=== PATIENT | female | born 1990 | race Caucasian/White ===

== ENCOUNTER → 2016-05-04 | Outpatient (CLI) | payer BC ==
[2016-05-04 12:17] LABS: ALT 30 U/L (9-52); AST 24 U/L (14-36); Alkaline Phosphatase 50 U/L (38-126); Anion Gap 10 mmol/L; Blood Urea Nitrogen 14 mg/dL (7-17); Calcium 9.1 mg/dL (8.4-10.2); Carbon Dioxide 23 mmol/L (22-30); Chloride 110 mmol/L (98-107); Glucose 77 mg/dL (74-99); Non-African American GFR(MDRD) >60 (>60 ml/min/1.73 sqM); Potassium 3.8 mmol/L (3.5-5.1); Sodium 143 mmol/L (137-145); Total Bilirubin 0.9 mg/dL (0.2-1.3); Total Protein 6.5 g/dL (6.3-8.2)
[2016-05-04 12:57] LABS: Aty Lym Flag Slight; CH 31.9; CHCM 32.3; HCT 43.5 % (34.0-46.0); HDW 2.23; Immature Gran Flag Moderate; MCH 31.8 pg (25.0-35.0); MCHC 32.1 g/dL (31.0-37.0); Mean Platelet Volume 7.9; RDW 12.4 % (11.5-15.5); WBC (Perox) 6.02
[2016-05-04 13:05] LABS: Vitamin B12 358 pg/mL (239-931)
[2016-05-04 14:02] LABS: Hemoglobin A1C 5.4 % (4.2-6.1)
[2016-05-04 14:27] LABS: Add Differential Manual Differential
[2016-05-04 14:34] LABS: Nucleated Red Blood Cells 0 /100 WBC (0-0); Total Cells Counted 100
[2016-05-04 14:37] LABS: Manual Review Performed
== END | disposition home or self-care (01) ==
LOC: LABWHC1 11:23
PROVIDERS: ATTEND Nurse Practitioner Family
DX: R63.1 Polydipsia (principal); R53.83 Other fatigue; Z13.228 Encounter for screening for other metabolic disorders
CPT/HCPCS: 36415; 80053; 82306; 82607; 83036; 84439; 84443; 85025

== ENCOUNTER → 2016-05-10 | Outpatient (CLI) | payer BC ==
--- NOTE | 2016-05-10 07:49 | CT ---
EXAMINATION TYPE: CT brain wo con DATE OF EXAM: 05/10/2016 7:44 AM COMPARISON: NONE HISTORY: Headache and vision changes CT DLP: 945.5 mGycm Automated exposure control for dose reduction was used. FINDINGS: Central structures are midline. There is no evidence of hydrocephalus. No acute focal lesion, mass ef fect or midline shift is seen. I do not see evidence of intracranial blood. Visualized portions of the paranasal sinuses and mastoids are clear. No depressed skull fracture is s een. IMPRESSION: NORMAL CT SCAN OF THE BRAIN.
== END | disposition home or self-care (01) ==
LOC: RADCTMAIN 07:21
PROVIDERS: ATTEND Family Medicine
DX: R51 Headache (principal)
CPT/HCPCS: 70450

== ENCOUNTER 2017-12-15 15:16 | Emergency (ER) | payer BC ==
[2017-12-15 15:29] VITALS: BP 138/81; PULSE 83; RESP 18; TEMP 98.4
[2017-12-15] MEDS ORDERED: SODIUM CHLORIDE 0.9% 500 ML IV ONE (15:33)
--- NOTE | 2017-12-15 15:49 | ED ---
General Adult HPI - General Chief complaint: Vaginal Bleeding Stated complaint: newly pg with bleeding Source: patient Mode of arrival: ambulatory Limitations: no limitations - History of Present Illness Initial comments: Dictation was produced using [employer] dictation software. please excuse any grammatical, word or spelling errors. Chief Complaint: 27-year-old female no significant past medical history presents with pelvic cramping and bleeding and . History of Present Illness: Patient is a 27-year-old presents with pelvic cramping and bleeding today. Patient was told that she is between 3 and 6 weeks based on last menstrual period. Patient experienced some pelvic pain and bleeding upon wiping after urination today. Patient has no medical problems. Patient states the pain is to the suprapubic area. The ROS documented in this emergency department record has been reviewed and confirmed by me. Those systems with pertinent positive or negative responses have been documented in the HPI. All other systems are other negative and/or noncontributory. - Related Data Allergies Allergy/AdvReac Type Severity Reaction Status Date / Time ibuprofen [From Advil] Allergy Rash/Hives Verified 12/15/17 15:29 Review of Systems ROS Statement: Those systems with pertinent positive or pertinent negative responses have been documented in the HPI. ROS Other: All systems not noted in ROS Statement are negative. Past Medical History Past Medical History: No Reported History History of Any Multi-Drug Resistant Organisms: None Reported Past Surgical History: Adenoidectomy, Tonsillectomy Past Psychological History: No Psychological Hx Reported Smoking Status: Never smoker Past Alcohol Use History: Occasional Past Drug Use History: None Reported General Exam - General Exam Comments Initial Comments: PHYSICAL EXAM: General Impression: Alert and oriented x3, not in acute distress HEENT: Normocephalic atraumatic, extra-ocular movements intact, pupils equal and reactive to light bilaterally, mucous membranes moist. Cardiovascular: Heart regular rate and rhythm, S1&S2 audible, no murmurs, rubs or gallops Chest: Lungs clear to auscultation bilaterally, no rhonchi, no wheeze, no rales Abdomen: Mild tenderness to the suprapubic area with palpation Musculoskeletal: Pulses present and equal in all extremities, no peripheral edema Motor: Power 5/5 bilaterally, no focal deficits noted Neurological: CN II-XII grossly intact, no focal motor or sensory deficits noted Skin: Intact with no visualized rashes Psych: Normal affect and mood Limitations: no limitations Course Vital Signs 12/15/17 15:27 Temperature 98.4 F Pulse Rate 83 Respiratory 18 Rate Blood Pressure 138/81 O2 Sat by Pulse 100 Oximetry Medical Decision Making - Medical Decision Making ED course: 27-year-old female with no significant past medical history presents with pelvic cramping and vaginal bleeding during . Patient states she believes she is between 3 and 6 weeks based on last menstrual period . Patient is on vitamins she is on multivitamins. No significant comorbidities. Vital signs upon arrival are within acceptable limits.Laboratory evaluation obtained. CBC is unremarkable. Beta Quant is 10, 818. Urinalysis is negative. OB ultrasound was obtained showing a single intrauterine . Findings are too small to determine date. It appears to be too early to see cardiac activity at this time. Blood type is O+. No indication for program administration at this time. Pelvic exam showed mild bleeding collected in the vaginal vault. Cervical os is closed without any active leading. Bimanual exam is negative. Patient told that her may be too early and at this point there appears to be single live intrauterine . Patient's pain is controlled. No clinical suspicion of ectopic . Patient at discharge. She'll follow-up with her [employer] sometime early next week. - Lab Data Result diagrams: 12/15/17 15:41 Lab Results 12/15/17 12/15/17 12/15/17 Range/Units 15:41 15:41 15:41 WBC 4.5 (3.8-10.6) k/uL RBC 4.59 (3.80-5.40) m/uL Hgb 14.4 (11.4-16.0) gm/dL Hct 46.2 H (34.0-46.0) % MCV 100.5 H (80.0-100.0) fL MCH 31.4 (25.0-35.0) pg MCHC 31.2 (31.0-37.0) g/dL RDW 12.5 (11.5-15.5) % Plt Count 187 (150-450) k/uL Neutrophils % 50 % Lymphocytes % 36 % Monocytes % 8 % Eosinophils % 1 % Basophils % 1 % Neutrophils # 2.2 (1.3-7.7) k/uL Lymphocytes # 1.6 (1.0-4.8) k/uL Monocytes # 0.4 (0-1.0) k/uL Eosinophils # 0.0 (0-0.7) k/uL Basophils # 0.0 (0-0.2) k/uL HCG, Quant 31381.6 mIU/mL Urine Color Urine Appearance (Clear) Urine pH (5.0-8.0) Ur Specific [place] (1.001-1.035) Urine Protein (Negative) Urine Glucose (UA) (Negative) Urine Ketones (Negative) Urine Blood (Negative) Urine Nitrite (Negative) Urine Bilirubin (Negative) Urine Urobilinogen (<2.0) mg/dL Ur Leukocyte Esterase (Negative) Urine HCG, Qual (Not Detectd) Blood Type O Positive Blood Type Recheck [facility] ONLY 12/15/17 12/15/17 Range/Units 15:41 15:41 WBC (3.8-10.6) k/uL RBC (3.80-5.40) m/uL Hgb (11.4-16.0) gm/dL Hct (34.0-46.0) % MCV (80.0-100.0) fL MCH (25.0-35.0) pg MCHC (31.0-37.0) g/dL RDW (11.5-15.5) % Plt Count (150-450) k/uL Neutrophils % % Lymphocytes % % Monocytes % % Eosinophils % % Basophils % % Neutrophils # (1.3-7.7) k/uL Lymphocytes # (1.0-4.8) k/uL Monocytes # (0-1.0) k/uL Eosinophils # (0-0.7) k/uL Basophils # (0-0.2) k/uL HCG, Quant mIU/mL Urine Color Yellow Urine Appearance Clear (Clear) Urine pH 5.0 (5.0-8.0) Ur Specific [place] 1.013 (1.001-1.035) Urine Protein Negative (Negative) Urine Glucose (UA) Negative (Negative) Urine Ketones Negative (Negative) Urine Blood Negative (Negative) Urine Nitrite Negative (Negative) Urine Bilirubin Negative (Negative) Urine Urobilinogen <2.0 (<2.0) mg/dL Ur Leukocyte Esterase Negative (Negative) Urine HCG, Qual Detected (Not Detectd) Blood Type Blood Type Recheck Disposition Clinical Impression: Bleeding in early Disposition: HOME SELF-CARE Condition: Good Instructions: Threatened Miscarriage (ED) Is patient prescribed a controlled substance at d/c from ED?: No Referrals: Lorne Sarkar DO [Primary Care Provider] - 1-2 days Time of Disposition: 18:12
[2017-12-15 15:56] LABS: Basophils % (A) 1 %; Eosinophils % (A) 1 %; HCT 46.2 % (34.0-46.0); HGB 14.4 gm/dL (11.4-16.0); Lymphocytes # (A) 1.6 k/uL (1.0-4.8); Lymphocytes % (A) 36 %; MCH 31.4 pg (25.0-35.0); MCHC 31.2 g/dL (31.0-37.0); MCV 100.5 fL (80.0-100.0); Mean Platelet Volume 7.5; Monocytes # (A) 0.4 k/uL (0-1.0); Monocytes % (A) 8 %; Neutrophils # (A) 2.2 k/uL (1.3-7.7); Neutrophils % (A) 50 %; Platelet Count 187 k/uL (150-450); RBC 4.59 m/uL (3.80-5.40); RDW 12.5 % (11.5-15.5); WBC 4.5 k/uL (3.8-10.6)
[2017-12-15 16:00] LABS: Appearance,Urine Clear (Clear); Bilirubin,Urine Negative (Negative); Blood,Urine Negative (Negative); Color,Urine Yellow; Glucose,Urine (UA) Negative (Negative); Ketones,Urine Negative (Negative); Leukocyte Esterase,Urine Negative (Negative); Nitrite,Urine Negative (Negative); Protein,Urine Negative (Negative); Specific Gravity,Urine 1.013 (1.001-1.035); Urobilinogen,Urine <2.0 mg/dL (<2.0)
--- NOTE | 2017-12-15 17:19 | US ---
EXAMINATION TYPE: Ultrasound OB <= 14 WEEKS TRANSVAGINAL DATE OF EXAM: 12/15/2017 COMPARISON: NONE CLINICAL HISTORY: 27-year-old female with pain. Pt states cramping and light vaginal bleeding EXAM PERFORMED: Transvaginal (TV) and Transabdominal (TA) FINDINGS: EXAM MEASUREMENTS: GESTATIONAL AGE / DATING Physician Established: Not yet established Dates by LMP: (6 weeks/0 days) EDC: 08/10/2018 Dates by First Scan: No prior Dates by Current Scan for: Too early to calculate dates MATERNAL ANATOMY Uterus: 7.1 x 3.9 x 3.8 cm Right Ovary: 3.5 x 1.8 x 2.1 cm Left Ovary: 2.3 x 1.2 x 2.2 cm Post CDS / Adnexa: wnl Presence of free fluid: Small amount posterior cul-de-sac Presence of corpus luteal cyst: Right Ovary= 1.7 x 0.9 x 1.3 cm Presence of subchorionic bleed: No GESTATION / SURVEY CRL: Not yet visualized MSD: 0.9 cm Too early to calculate dates, borders somewhat irregular Yolk Sac (normal less than 6mm): 2mm Date of LMP: 11/03/2017 Beta HcG (if available): Not available at this time IMPRESSION: 1. Single intrauterine (characterized by a gestational sac and yolk sac) too small to date at this time. No pole or cardiac activity seen at this time. Correlate with beta hCG values. 2. Current differential considerations include early and failed . Ultrasound follo w-up is recommended to ensure the appearance of the pole with cardiac activity especially as th e gestational sac has a slightly irregular appearance.
== END 2017-12-15 18:20 | disposition home or self-care (01) ==
LOC: EC 15:16
DX: O20.9 Hemorrhage in early pregnancy, unspecified (principal); O99.89 Other specified diseases and conditions complicating pregnancy, childbirth and the puerperium; R10.2 Pelvic and perineal pain; Z3A.01 Less than 8 weeks gestation of pregnancy; Z88.6 Allergy status to analgesic agent
CPT/HCPCS: 36415; 76801; 76817; 81003; 81025; 84702; 85025; 86900; 86901; 96360; 99284

== ENCOUNTER → 2017-12-17 | Outpatient (CLI) | payer BC | END | disposition home or self-care (01) | LOC: LABWHC1 15:31 | PROVIDERS: ATTEND Obstetrics & Gynecology | DX: O20.0 Threatened abortion (principal); Z3A.00 Weeks of gestation of pregnancy not specified | CPT/HCPCS: 36415; 84702 ==

== ENCOUNTER → 2017-12-23 | Outpatient (CLI) | payer BC | END | disposition home or self-care (01) | LOC: LABWHC1 10:04 | PROVIDERS: ATTEND Obstetrics & Gynecology | DX: O20.0 Threatened abortion (principal); Z3A.00 Weeks of gestation of pregnancy not specified | CPT/HCPCS: 36415; 84702 ==

== ENCOUNTER → 2018-01-08 | Outpatient (CLI) | payer BC ==
[2018-01-08 09:23] LABS: HCT 40.4 % (34.0-46.0); HGB 13.3 gm/dL (11.4-16.0); MCH 31.9 pg (25.0-35.0); MCV 96.8 fL (80.0-100.0); Mean Platelet Volume 8.2; Platelet Count 201 k/uL (150-450); RBC 4.17 m/uL (3.80-5.40); RDW 11.9 % (11.5-15.5); WBC 8.4 k/uL (3.8-10.6)
[2018-01-08 09:53] LABS: T4, Free (Free Thyroxine) 1.26 ng/dL (0.78-2.19)
[2018-01-08 18:43] LABS: HIV 1 AB Non-Reactive (Non-Reactive); HIV AB P24 Non-Reactive (Non-Reactive); HIV P24 AG Non-Reactive (Non-Reactive)
== END ==
LOC: LABWHC1 08:15
PROVIDERS: ATTEND Obstetrics & Gynecology
DX: Z34.90 Encounter for supervision of normal pregnancy, unspecified, unspecified trimester (principal); Z3A.00 Weeks of gestation of pregnancy not specified
CPT/HCPCS: 36415; 84439; 84443; 85027; 86762; 86780; 86850; 86900; 86901; 87086; 87340; 87390

== ENCOUNTER → 2018-01-20 | Outpatient (CLI) | payer BC ==
--- NOTE | 2018-01-20 15:49 | US ---
EXAMINATION TYPE: Transabdominal DATE OF EXAM: 06/25/17 COMPARISON: CLINICAL HISTORY: O76 ABSENT HEART SOUNDS. Unable to get FHT's with doppler at office. EXAM PERFORMED: Transabdominal (TA) EXAM MEASUREMENTS: GESTATIONAL AGE / DATING Dates by LMP: (11 weeks/1 days) EDC: 08/10/2018 Dates by Current Scan for: (11 weeks/0 days) EDC: 08/11/2018 MATERNAL ANATOMY Uterus: 9.1 x 6.6 x 6.3 cm Right Ovary: 3.0 x 1.9 x 1.6 cm Left Ovary: 2.5 x 1.6 x 1.3 cm Post CDS / Adnexa: no free fluid Presence of free fluid: no Presence of corpus luteal cyst: right ovarian lesion = 1.7 x 1.3 x 2.0 cm Presence of subchorionic bleed: no GESTATION / SURVEY CRL: 4.0 cm (11 weeks/0 days) MSD: seen, not measured Yolk Sac (normal less than 6mm): 3.2 mm Heart Rate: 161 bpm Rhythm: Normal IUP: Viable IUP Date of LMP: 11/03/2017, G1 Beta HcG (if available): Not available at this time IMPRESSION: Single live IUP measuring 11 weeks 0 days.
== END | disposition home or self-care (01) ==
LOC: RADUSWWP 14:21
PROVIDERS: ATTEND Obstetrics & Gynecology
DX: O76 Abnormality in fetal heart rate and rhythm complicating labor and delivery (principal); Z3A.11 11 weeks gestation of pregnancy
CPT/HCPCS: 76801

== ENCOUNTER → 2018-01-23 | Outpatient (CLI) | payer BC | LOC: LABWHC1 11:07 | PROVIDERS: ATTEND Clinical Nurse Specialist Women's Health | DX: R78.89 Finding of other specified substances, not normally found in blood (principal) | CPT/HCPCS: 36415; 81291 ==

== ENCOUNTER 2018-01-28 08:28 | Emergency (ER) | payer BC ==
[2018-01-28 08:39] VITALS: PULSE 90; RESP 18; TEMP 97
[2018-01-28] MEDS ORDERED: SODIUM CHLORIDE 0.9% 1,000 ML IV ONE (08:45)
--- NOTE | 2018-01-28 09:22 | XR ---
EXAMINATION TYPE: XR chest 2V DATE OF EXAM: 01/28/2018 COMPARISON: Chest x-ray February 07, 2012 HISTORY: Shortness of breath for couple weeks. TECHNIQUE: Frontal and lateral views of the chest are obtained. FINDINGS: There is no focal air space opacity, pleural effusion, or pneumothorax seen. The cardiac silhouette size is within normal limits. The osseous structures are intact. IMPRESSION: No acute cardiopulmonary process. No significant change from prior.
--- NOTE | 2018-01-28 09:23 | ED ---
General Adult HPI - General Chief complaint: Shortness of Breath Stated complaint: Dizziness/sob 12 wks Time Seen by Provider: 01/28/18 08:32 Source: patient, RN notes reviewed Mode of arrival: ambulatory Limitations: no limitations - History of Present Illness Initial comments: This a 27-year-old female presents emergency Department with chief complaint of shortness of breath. Patient states that she is currently 12 weeks her [employer] is Dr. Emanuel. Patient states that she has not felt well last couple weeks has felt fatigue, shortness of breath she did have some lab work which initially that she may be anemic but is found to have elevated iron level. Patient was screened for [place] HFR and was told that she does have it though she tested positive heterozygous. Patient states that she's been noticing that she has shortness of breath when she walks and sometimes talks but also when she lays down at nighttime. Patient denies any leg swelling or leg pain. Patient states that she has also noticed her heart rate has been elevating into the 120s to 130s. Patient states that she has a benign past medical history is otherwise healthy has no complaints of her including abdominal pain, vaginal bleeding or vaginal discharge. - Related Data Home Medications Medication Instructions Recorded Confirmed Cyanocobalamin (Vitamin B-12) 1,000 mcg PO DAILY 01/28/18 01/28/18 [Vitamin B-12] Levomefolate Calcium 7.5 mg PO DAILY 01/28/18 01/28/18 [l-Methylfolate Calcium] Odo-Evqn-Qqwtg Acid 1 cap PO DAILY 01/28/18 01/28/18 [-U Capsule (formulary)] Allergies Allergy/AdvReac Type Severity Reaction Status Date / Time ibuprofen [From Advil] Allergy Rash/Hives Verified 01/28/18 09:57 Review of Systems ROS Statement: Those systems with pertinent positive or pertinent negative responses have been documented in the HPI. ROS Other: All systems not noted in ROS Statement are negative. Past Medical History Past Medical History: No Reported History History of Any Multi-Drug Resistant Organisms: None Reported Past Surgical History: Adenoidectomy, Tonsillectomy Past Psychological History: No Psychological Hx Reported Smoking Status: Never smoker Past Alcohol Use History: Occasional Past Drug Use History: None Reported General Exam Limitations: no limitations General appearance: alert, in no apparent distress Head exam: Present: atraumatic, normocephalic, normal inspection Neck exam: Present: normal inspection, full ROM. Absent: tenderness, meningismus, lymphadenopathy Respiratory exam: Present: normal lung sounds bilaterally. Absent: respiratory distress, wheezes, rales, rhonchi, stridor Cardiovascular Exam: Present: regular rate, normal rhythm, normal heart sounds. Absent: systolic murmur, diastolic murmur, rubs, gallop, clicks Extremities exam: Present: pedal edema Skin exam: Present: warm, dry, intact, normal color. Absent: rash Course Vital Signs 01/28/18 08:37 Temperature 97 F L Pulse Rate 90 Respiratory 18 Rate Blood Pressure 136/75 O2 Sat by Pulse 100 Oximetry EKG Findings - EKG Comments: EKG Findings:: EKG performed at 8:44 normal sinus rhythm with a rate of 81 RI 168 QRS 92 QT/QTC 364/422 Medical Decision Making - Medical Decision Making 27-year-old female presents emergency Department for intermittent shortness of breath and palpitations or tachycardia. Patient had lab work, EKG, chest x-ray , echo all within normal limits. Patient did have an story pulse ox and heart rate in which she was found to have the highest heart rate of 110 while ambulating and no hypoxic event patient has been satting 100% on room air and has been been exhibiting symptoms. Echo does not show any evidence of cardiomyopathy or any other acute abnormality's. Chest x-ray was within normal limits no evidence of pulmonary congestion, no prior megaly a, pneumothorax or infiltrate. Patient did have bilateral lower extremity ultrasounds which is negative for acute DVT. 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 Patient states that she is not having symptoms and she rather not have this test done in lieu of possibility of having CT which would expose the baby to radiation. Patient states she rather follow-up with her [employer] and return for any worsening symptoms. - Lab Data Result diagrams: 01/28/18 08:52 01/28/18 08:52 Lab Results 01/28/18 01/28/18 01/28/18 Range/Units 08:52 08:52 08:52 WBC 6.8 (3.8-10.6) k/uL RBC 4.12 (3.80-5.40) m/uL Hgb 13.0 (11.4-16.0) gm/dL Hct 38.5 (34.0-46.0) % MCV 93.3 (80.0-100.0) fL MCH 31.5 (25.0-35.0) pg MCHC 33.7 (31.0-37.0) g/dL RDW 12.3 (11.5-15.5) % Plt Count 161 (150-450) k/uL Neutrophils % 66 % Lymphocytes % 25 % Monocytes % 6 % Eosinophils % 0 % Basophils % 0 % Neutrophils # 4.5 (1.3-7.7) k/uL Lymphocytes # 1.7 (1.0-4.8) k/uL Monocytes # 0.4 (0-1.0) k/uL Eosinophils # 0.0 (0-0.7) k/uL Basophils # 0.0 (0-0.2) k/uL Sodium 137 (137-145) mmol/L Potassium 3.6 (3.5-5.1) mmol/L Chloride 107 (98-107) mmol/L Carbon Dioxide 20 L (22-30) mmol/L Anion Gap 10 mmol/L BUN 13 (7-17) mg/dL Creatinine 0.47 L (0.52-1.04) mg/dL Est GFR (CKD-EPI)AfAm >90 (>60 ml/min/1.73 sqM) Est GFR (CKD-EPI)NonAf >90 (>60 ml/min/1.73 sqM) Glucose 108 H (74-99) mg/dL Calcium 9.2 (8.4-10.2) mg/dL Total Bilirubin 0.9 (0.2-1.3) mg/dL AST 20 (14-36) U/L ALT 16 (9-52) U/L Alkaline Phosphatase 28 L (38-126) U/L Total Protein 6.2 L (6.3-8.2) g/dL Albumin 3.6 (3.5-5.0) g/dL Urine Color Light Yellow Urine Appearance Clear (Clear) Urine pH 5.0 (5.0-8.0) Ur Specific [place] 1.011 (1.001-1.035) Urine Protein Negative (Negative) Urine Glucose (UA) Negative (Negative) Urine Ketones Negative (Negative) Urine Blood Negative (Negative) Urine Nitrite Negative (Negative) Urine Bilirubin Negative (Negative) Urine Urobilinogen <2.0 (<2.0) mg/dL Ur Leukocyte Esterase Negative (Negative) Disposition Clinical Impression: Dyspnea, Disposition: HOME SELF-CARE Condition: Stable Instructions: Dyspnea (ED) Additional Instructions: Please return to the Emergency Department if symptoms worsen or any other concerns. Is patient prescribed a controlled substance at d/c from ED?: No Referrals: Lorne Sarkar DO [Primary Care Provider] - 1-2 days Time of Disposition: 11:02
[2018-01-28 09:24] LABS: Appearance,Urine Clear (Clear); Bilirubin,Urine Negative (Negative); Blood,Urine Negative (Negative); Color,Urine Light Yellow; Glucose,Urine (UA) Negative (Negative); Ketones,Urine Negative (Negative); Leukocyte Esterase,Urine Negative (Negative); Nitrite,Urine Negative (Negative); Protein,Urine Negative (Negative); Specific Gravity,Urine 1.011 (1.001-1.035); Urobilinogen,Urine <2.0 mg/dL (<2.0)
[2018-01-28 09:40] LABS: Basophils % (A) 0 %; Eosinophils % (A) 0 %; HCT 38.5 % (34.0-46.0); Lymphocytes # (A) 1.7 k/uL (1.0-4.8); Lymphocytes % (A) 25 %; MCH 31.5 pg (25.0-35.0); MCHC 33.7 g/dL (31.0-37.0); MCV 93.3 fL (80.0-100.0); Mean Platelet Volume 7.4; Monocytes # (A) 0.4 k/uL (0-1.0); Monocytes % (A) 6 %; Neutrophils # (A) 4.5 k/uL (1.3-7.7); Neutrophils % (A) 66 %; Platelet Count 161 k/uL (150-450); RBC 4.12 m/uL (3.80-5.40); RDW 12.3 % (11.5-15.5); WBC 6.8 k/uL (3.8-10.6)
[2018-01-28 09:46] LABS: ALT 16 U/L (9-52); AST 20 U/L (14-36); Albumin 3.6 g/dL (3.5-5.0); Alkaline Phosphatase 28 U/L (38-126); Anion Gap 10 mmol/L; Blood Urea Nitrogen 13 mg/dL (7-17); Calcium 9.2 mg/dL (8.4-10.2); Carbon Dioxide 20 mmol/L (22-30); Chloride 107 mmol/L (98-107); Glucose 108 mg/dL (74-99); Potassium 3.6 mmol/L (3.5-5.1); Sodium 137 mmol/L (137-145); Total Bilirubin 0.9 mg/dL (0.2-1.3); Total Protein 6.2 g/dL (6.3-8.2)
--- NOTE | 2018-01-28 10:00 | US ---
EXAMINATION TYPE: US venous doppler duplex LE DATE OF EXAM: 01/28/2018 9:00 AM COMPARISON: NONE CLINICAL HISTORY: Pain. SOB SIDE PERFORMED: Bilateral TECHNIQUE: The lower extremity deep venous system is examined utilizing real time linear array sonog annmarie with graded compression, doppler sonography and color-flow sonography. VESSELS IMAGED: External Iliac Vein (EIV) Common Femoral Vein Deep Femoral Vein Greater Saphenous Vein * Femoral Vein Popliteal Vein Small Saphenous Vein * Proximal Calf Veins (* superficial vessels) Right Leg: Negative for DVT Left Leg: Negative for DVT Grayscale, color doppler, spectral doppler imaging performed of the deep veins of the bilateral lower extremities. There is normal flow, compressibility, vascular waveforms. IMPRESSION: No ultrasound evidence for acute DVT in either lower extremity.
[2018-01-28] MEDS ORDERED: ACETAMINOPHEN TAB 325 MG TAB PO STA (11:09)
[2018-01-28 11:17] VITALS: BP 108/70
--- NOTE | 2018-01-28 12:14 | ECHOF ---
Referral Reason:Exertional shortness of breath MEASUREMENTS -------- HEIGHT: 162.6 cm WEIGHT: 57.6 kg BP: RVIDd: 2.4 cm (< 3.3) IVSd: 0.9 cm (0.6 - 1.1) LVIDd: 4.1 cm (3.9 - 5.3) LVPWd: 1.0 cm (0.6 - 1.1) IVSs: 1.1 cm LVIDs: 3.3 cm LVPWs: 1.2 cm LA Diam: 2.4 cm (2.7 - 3.8) Ao Diam: 2.4 cm (2.0 - 3.7) AV Cusp: 1.7 cm (1.5 - 2.6) LA Diam: 3.0 cm (2.7 - 3.8) MV EXCURSION: 21.714 mm (> 18.000) MV EF SLOPE: 87 mm/s (70 - 150) EPSS: 0.3 cm MV E Dave: 0.89 m/s MV DecT: 243 ms MV A Dave: 0.76 m/s MV E/A Ratio: 1.17 RAP: 5.00 mmHg RVSP: 14.24 mmHg FINDINGS -------- Sinus rhythm. This was a technically good study. LV size, wall thickness and systolic function are normal, with an EF greater than 55%. The left sherly tricular size is normal. The right ventricle is normal in size. The left atrial size is normal. The right atrial size is normal. The aortic valve is trileaflet, and appears structurally normal. No aortic stenosis or regurgitation. Mild mitral regurgitation is present. Mild tricuspid regurgitation present. There is no evidence of pulmonary hypertension. The right v entricular systolic pressure, as measured by Doppler, is 14.24mmHg. There is no pulmonic regurgitation present. The aortic root size is normal. There is no pericardial effusion. CONCLUSIONS -------- 1. LV size, wall thickness and systolic function are normal, with an EF greater than 55%. 2. The left ventricular size is normal. 3. The right ventricle is normal in size. 4. The left atrial size is normal. 5. The right atrial size is normal. 6. The aortic valve is trileaflet, and appears structurally normal. No aortic stenosis or regurgitati on. 7. Mild mitral regurgitation is present. 8. Mild tricuspid regurgitation present. 9. There is no evidence of pulmonary hypertension. 10. The right ventricular systolic pressure, as measured by Doppler, is 14.24mmHg. 11. There is no pulmonic regurgitation present. 12. The aortic root size is normal. 13. There is no pericardial effusion. PAINTER SET: Marion Vincent RDCS
== END 2018-01-28 11:13 | disposition home or self-care (01) ==
LOC: EC 08:28
DX: O99.89 Other specified diseases and conditions complicating pregnancy, childbirth and the puerperium (principal); R06.02 Shortness of breath; R53.83 Other fatigue; Z3A.12 12 weeks gestation of pregnancy; Z79.899 Other long term (current) drug therapy; Z88.6 Allergy status to analgesic agent
CPT/HCPCS: 36415; 71046; 80053; 81003; 85025; 93005; 93306; 93970; 96360; 99285

== ENCOUNTER 2018-08-15 13:16 | Inpatient (IN) | payer MEDICAID, BC ==
[2018-08-20] MEDS ORDERED: DINOPROSTONE 10 MG INSERT.ER VAGINAL ONE (16:21)
[2018-08-20] MEDS ORDERED: TERBUTALINE 1 MG/ML VIAL SQ PRN (16:21)
[2018-08-20] MEDS ORDERED: METHYLERGONOVINE 0.2 MG/ML 1 ML AMP IM PRN (16:21)
[2018-08-20] MEDS ORDERED: LIDOCAINE 0.5% (PF) 5 MG/ML (50 ML SDV) SQ PRN (16:21)
[2018-08-20] MEDS ORDERED: CARBOPROST TROMETHAMINE 250 MCG/ML 1 ML AMP IM PRN (16:21)
[2018-08-20] MEDS ORDERED: OXYTOCIN 10 UNIT/ML 1 ML VIAL IM PRN (16:21)
[2018-08-20] MEDS ORDERED: BUTORPHANOL 1 MG/ML 1 ML VIAL IV PRN (16:21)
[2018-08-20 16:36] VITALS: BMI 27.9
--- NOTE | 2018-08-20 17:16 | P.HPOB ---
History of Present Illness H&P Date: 08/20/18 Chief Complaint: Postdates , unfavorable cervix This is a 27-year-old 1 para 0 woman with an estimated due date of 08/15/2018 based on first trimester ultrasound who presents for postdates induction of labor at 40-5/7 weeks. Her cervix is unfavorable therefore she will receive Cervidil prior to a Pitocin induction. Her has been uncomplicated. She has a history of heterozygous MTHFR with no previous history of thrombosis. She has been taking 4 mg of for like acid throughout the . Laboratory data: Blood type O+, antibody screen negative, rubella immune, VDRL nonreactive, hepatitis B surface antigen negative, HIV negative, gonorrhea and chlamydia cultures negative, group B strep screening negative. She received the T dap vaccine on 06/30/2018. Review of Systems All systems: negative Past Medical History Past Medical History: No Reported History History of Any Multi-Drug Resistant Organisms: None Reported Past Surgical History: Adenoidectomy, Tonsillectomy Past Anesthesia/Blood Transfusion Reactions: No Reported Reaction Past Psychological History: No Psychological Hx Reported Smoking Status: Never smoker Past Alcohol Use History: None Reported, Occasional Past Drug Use History: None Reported - Past Family History Father Family Medical History: Cancer, Coronary Artery Disease (CAD), Diabetes Mellitus Additional Family Medical History / Comment(s): father deceases from cancer Mother Additional Family Medical History / Comment(s): glaucoma Medications and Allergies Home Medications Medication Instructions Recorded Confirmed Type Cyanocobalamin (Vitamin B-12) 1,000 mcg PO DAILY 01/28/18 08/20/18 History [Vitamin B-12] Levomefolate Calcium 7.5 mg PO DAILY 01/28/18 08/20/18 History [l-Methylfolate Calcium] Rmw-Oohe-Eptul Acid 1 cap PO DAILY 01/28/18 08/20/18 History [-U Capsule (formulary)] Allergies Allergy/AdvReac Type Severity Reaction Status Date / Time ibuprofen [From Advil] Allergy Rash/Hives Verified 08/20/18 16:29 Exam Vital Signs Temp Pulse Resp BP 08/20/18 16:21 97.8 F 92 16 133/82 Intake and Output 08/20/18 08/20/18 08/20/18 06:59 14:59 22:59 Other: Weight 73.936 kg This is a pleasant, visibly gravid female in no acute distress. HEENT exam is unremarkable. The lungs are clear and her breathing is unlabored. The heart is a regular rate and rhythm. The abdomen is gravid with a fundal height of 40 cm. Estimated weight 7-1/2 pounds. She has trace lower extremity edema. On pelvic examination the cervix is closed, 70% effaced and the vertex is in the -2 station. She has a reactive NST with no regular contraction activity. Cervidil is placed in the posterior fornix. Assessment and Plan (1) Post-dates Current Visit: Yes Status: Acute Code(s): O48.0 - POST-TERM SNOMED Code(s): 00070249 (2) Unfavorable cervix in term Current Visit: Yes Status: Acute Code(s): O34.40 - MATERNAL CARE FOR OTH ABNLT OF CERVIX, UNSP TRIMESTER SNOMED Code(s): 096660180 Plan: 27-year-old 1 para 0 woman admitted at 40-5/7 weeks gestation for cervical ripening and induction of labor. status is currently reassuring by external monitoring. Cervidil has been placed. This will be removed in approximately 12 hours or with active labor. Pitocin induction will be initiated after removal of the Cervidil. She is group B strep negative and Rh+.
[2018-08-20 17:43] LABS: Basophils % (A) 0 %; Eosinophils # (A) 0.1 k/uL (0-0.7); Eosinophils % (A) 1 %; HCT 33.3 % (34.0-46.0); HGB 11.3 gm/dL (11.4-16.0); Lymphocytes # (A) 1.4 k/uL (1.0-4.8); Lymphocytes % (A) 18 %; MCH 31.1 pg (25.0-35.0); MCHC 33.9 g/dL (31.0-37.0); MCV 91.7 fL (80.0-100.0); Mean Platelet Volume 9.8; Monocytes # (A) 0.6 k/uL (0-1.0); Monocytes % (A) 7 %; Neutrophils # (A) 5.7 k/uL (1.3-7.7); Neutrophils % (A) 72 %; Platelet Count 190 k/uL (150-450); RBC 3.63 m/uL (3.80-5.40); RDW 14.2 % (11.5-15.5); WBC 7.9 k/uL (3.8-10.6)
[2018-08-20] MEDS: LACTATED RINGERS 1,000 ML IV SCH ×4 (18:33→21:25)
[2018-08-20] MEDS: OXYTOCIN 30 UNITS/500 ML NS 30 UNIT in SALINE 1 500ML.BAG IV SCH (18:33)
[2018-08-21] MEDS: LACTATED RINGERS 1,000 ML IV SCH (04:49)
[2018-08-21] MEDS: OXYTOCIN 30 UNITS/500 ML NS 30 UNIT in SALINE 1 500ML.BAG IV SCH (05:54)
[2018-08-21] MEDS ORDERED: diphenhydrAMINE 50 MG CAP PO PRN (10:03)
[2018-08-21] MEDS ORDERED: BENZOCAINE/MENTHOL SPRAY 1 GM/SPRAY AEROSOL TOPICAL PRN (10:03)
[2018-08-21] MEDS ORDERED: SIMETHICONE 80 MG CHEWABLE PO PRN (10:03)
[2018-08-21] MEDS ORDERED: diphenhydrAMINE 50 MG/ML 1 ML VIAL IVP PRN ×2 (10:03)
[2018-08-21] MEDS ORDERED: ZOLPIDEM 5 MG TAB PO PRN (10:03)
[2018-08-21] MEDS ORDERED: LANOLIN CREAM 5 GM TUBE TOPICAL PRN (10:03)
[2018-08-21] MEDS ORDERED: ACETAMINOPHEN TAB 325 MG TAB PO PRN (10:03)
[2018-08-21] MEDS ORDERED: HYDROCORTISONE 2.5% RECTAL CREAM 30 GM TUBE RECTAL PRN (10:03)
[2018-08-21] MEDS ORDERED: diphenhydrAMINE 25 MG CAP PO PRN (10:03)
[2018-08-21] MEDS ORDERED: WITCH HAZEL 1 EACH MED..PAD TOPICAL PRN (10:03)
--- NOTE | 2018-08-21 10:03 | P.PROBDLV ---
Vaginal Delivery Note - . Vaginal Delivery Note: Findings: Male infant in the vertex right occiput anterior position with Apgars of 9 at 1 minute and 9 at 5 minutes weighing 7 lbs. 2 oz., 3230 g. Intact, three-vessel cord placenta. Bilateral periurethral lacerations and first degree perineal lacerations. EBL 150 mL's. Delivery summary: This is a 27-year-old 1 para 0 woman who is admitted at 40-5/7 weeks gestation for cervical ripening for postdates induction of labor. Her initial cervical exam was closed, 70%, -2 station and posterior. Cervidil was placed at approximately 5:15 PM. Very rapidly after placement of Cervidil she did begin halina and the third Cervidil was ultimately removed around the 745pm when she had spontaneous rupture of membranes. She was 3+ centimeters dilated 100% effaced at that time. status was reassuring. She actively labored throughout the night and did receive an epidural anesthetic. She reached complete cervical dilation by 06 45 am however had a very dense epidural. She did push with minimal progress and therefore was allowed to stop pushing for approximate 45 minutes and "labor down". status was reassuring during this timeframe. She did begin to have more pelvic and perineal pressure and urge to push and we commenced pushing around approximately 8:15 AM. She did have some good descent of the vertex. She had moderate variable heart rate decelerations pushing however had good interim baseline and variability. She did ultimately pushed to at which time she was positioned and prepped. With additional maternal effort the head delivered from the right occiput anterior position. The anterior followed by the posterior shoulders were delivered without difficulty. The nose and mouth were bulb suctioned and the was placed on the maternal abdomen. The cord was clamped and cut. Apgars were 9 at 1 minute and 9 at 5 minutes. The bilateral periurethral and first-degree perineal lacerations were infused with lidocaine. 3-0 Vicryl suture was utilized to reapproximate these areas in an interrupted fashion. An intact, three-vessel cord placenta was then delivered after an approximately 10 minute third stage of labor. The uterus was massaged and was noted to be firm. The vagina and cervix were inspected and noted to have no further lacerations. EBL was approximately 150 mL's. The patient received Pitocin following delivery of the placenta. All counts were correct. Both mother and infant were doing well post delivery in the room.
[2018-08-21] MEDS ORDERED: OXYTOCIN 20 UNITS/1000 ML NS 1,000 ML IV SCH (10:15)
[2018-08-21] MEDS: IBUPROFEN 600 MG TAB PO PRN ×2 (10:20→19:44)
[2018-08-21] MEDS: SENNOSIDES-DOCUSATE SODIUM 1 EACH TAB PO SCH (19:44)
[2018-08-21] MEDS: SENNA LEAF EXTRACT SYRUP 528 MG/15 ML CUP PO SCH (20:23)
[2018-08-22 06:35] LABS: Basophils % (A) 0 %; Eosinophils # (A) 0.1 k/uL (0-0.7); Eosinophils % (A) 1 %; HCT 32.5 % (34.0-46.0); HGB 10.7 gm/dL (11.4-16.0); Lymphocytes # (A) 1.8 k/uL (1.0-4.8); Lymphocytes % (A) 15 %; MCH 30.4 pg (25.0-35.0); MCHC 32.9 g/dL (31.0-37.0); MCV 92.5 fL (80.0-100.0); Mean Platelet Volume 9.6; Monocytes # (A) 0.6 k/uL (0-1.0); Monocytes % (A) 5 %; Neutrophils # (A) 9.1 k/uL (1.3-7.7); Neutrophils % (A) 77 %; Platelet Count 158 k/uL (150-450); RBC 3.52 m/uL (3.80-5.40); RDW 14.3 % (11.5-15.5); WBC 11.8 k/uL (3.8-10.6)
--- NOTE | 2018-08-22 07:55 | P.PNOBGVD ---
Subjective - Subjective Principal diagnosis: day 1 Interval history: Some soreness in her perineum but tolerable. Struggling with breast-feeding, meeting with the railroad design consultant later today. Patient reports: Reports appetite normal : doing well, other (No void yet, unable to circ) Objective - Latest Vital Signs Latest vital signs: Vital Signs Temp Pulse Resp BP 08/22/18 00:00 97.8 F 77 14 128/84 08/21/18 20:00 98.2 F 81 14 136/91 08/21/18 16:00 97.9 F 86 15 134/81 08/21/18 12:07 98 F 81 16 123/71 08/21/18 11:52 97.2 F L 73 16 148/81 08/21/18 11:22 71 16 144/82 08/21/18 10:52 75 16 152/74 08/21/18 10:37 80 16 140/66 08/21/18 10:22 91 16 153/104 08/21/18 10:07 98.4 F 90 16 138/98 08/21/18 09:52 79 16 141/77 - Exam Extremities: Present: normal Uterus: Present: normal, firm. Absent: tenderness - Labs Labs: Abnormal Lab Results - Last 24 Hours (Table) 08/22/18 Range/Units 06:19 WBC 11.8 H (3.8-10.6) k/uL RBC 3.52 L (3.80-5.40) m/uL Hgb 10.7 L (11.4-16.0) gm/dL Hct 32.5 L (34.0-46.0) % Neutrophils # 9.1 H (1.3-7.7) k/uL Assessment and Plan (1) Post-dates Current Visit: Yes Status: Acute Code(s): O48.0 - POST-TERM SNOMED Code(s): 52682970 (2) Unfavorable cervix in term Current Visit: Yes Status: Acute Code(s): O34.40 - MATERNAL CARE FOR OTH ABNLT OF CERVIX, UNSP TRIMESTER SNOMED Code(s): 940362099 (3) Spontaneous rupture of membranes Current Visit: Yes Status: Acute Code(s): GMM5558 - SNOMED Code(s): 001066011 (4) Perineal laceration with delivery, first degree Current Visit: Yes Status: Acute Code(s): O70.0 - FIRST DEGREE PERINEAL LACERATION DURING DELIVERY SNOMED Code(s): 517022303 (5) Normal spontaneous vaginal delivery Current Visit: Yes Status: Acute Code(s): O80 - ENCOUNTER FOR FULL-TERM UNCOMPLICATED DELIVERY SNOMED Code(s): 81211564 Plan: day 1 status post normal spontaneous vaginal delivery. Discharge home tomorrow. Infant has not yet been circumcised as he has not had a spontaneous void.
[2018-08-22] MEDS: SENNOSIDES-DOCUSATE SODIUM 1 EACH TAB PO SCH ×2 (09:21→20:31)
[2018-08-22] MEDS: IBUPROFEN 600 MG TAB PO PRN ×2 (12:36→20:31)
[2018-08-22] MEDS: SENNA LEAF EXTRACT SYRUP 528 MG/15 ML CUP PO SCH ×2 (14:02→21:33)
[2018-08-23] MEDS: SENNOSIDES-DOCUSATE SODIUM 1 EACH TAB PO SCH (07:28)
[2018-08-23] MEDS: SENNA LEAF EXTRACT SYRUP 528 MG/15 ML CUP PO SCH (07:28)
--- NOTE | 2018-08-23 09:09 | P.DS ---
Providers Date of admission: 08/20/18 16:09 Expected date of discharge: 08/23/18 Attending physician: Deborah Emanuel Primary care physician: Stated None - Discharge Diagnosis(es) (1) Normal spontaneous vaginal delivery Current Visit: Yes Status: Acute (2) Perineal laceration with delivery, first degree Current Visit: Yes Status: Acute (3) Post-dates Current Visit: Yes Status: Acute (4) Spontaneous rupture of membranes Current Visit: Yes Status: Acute (5) Unfavorable cervix in term Current Visit: Yes Status: Acute Hospital Course: This is a pleasant 27-year-old 1 para 0 who was admitted at 40-5/7 weeks for cervical right ripening for postdates induction of labor. Initially her cervical exam was closed by 70/-2. Cervidil was placed at 5:15. Soon after placement of the Cervidil she was noted to be 3+ centimeters 100% effaced. Patient actively labored throughout the evening eventually receiving an epidural. Patient progressed to complete began pushing and had a normal spontaneous vaginal delivery of a viable male infant at 946, weight of 7 lbs. 2 oz. with Apgars of 9 and 9 at one and 5 minutes respectively. Patient did sustain a first-degree laceration was was repaired in the usual fashion. Patient's course has been uneventful. She is ambulating and voiding without difficulty. She is tolerating a regular diet without nausea or vomiting. Her lochia is moderate, she is breast-feeding without difficulty. She does wish discharge home on this day #2. Patient Condition at Discharge: Good Plan - Discharge Summary New Discharge Prescriptions: No Action Hbo-Gjpb-Xcweu Acid [-U Capsule (formulary)] 1 cap PO DAILY Cyanocobalamin (Vitamin B-12) [Vitamin B-12] 1,000 mcg PO DAILY Levomefolate Calcium [l-Methylfolate Calcium] 7.5 mg PO DAILY Discharge Medication List Cyanocobalamin (Vitamin B-12) [Vitamin B-12] 1,000 mcg PO DAILY 01/28/18 [History] Levomefolate Calcium [l-Methylfolate Calcium] 7.5 mg PO DAILY 01/28/18 [History] Snl-Srwb-Hcygp Acid [-U Capsule (formulary)] 1 cap PO DAILY 01/28/18 [History] Follow up Appointment(s)/Referral(s): Deborah Emanuel MD [STAFF PHYSICIAN] - 6 Weeks Patient Instructions/Handouts: Vaginal Delivery (DC), Vaginal Delivery (GEN) Discharge Disposition: HOME SELF-CARE
[2018-08-23 12:52] VITALS: RESP 17
[2018-08-23 15:08] VITALS: BP 139/86; PULSE 70; TEMP 98.3
== END 2018-08-23 18:00 | disposition home or self-care (01) | DRG 807 ==
LOC: 4FBP 08-20 16:09
PROVIDERS: ADMIT Obstetrics & Gynecology; ATTEND Obstetrics & Gynecology
PROC: 3E0P7VZ Introduction of Hormone into Female Reproductive, Via Natural or Artificial Opening (ICD-10-PCS; 2018-08-20)
PROC: 3E033VJ Introduction of Other Hormone into Peripheral Vein, Percutaneous Approach (ICD-10-PCS; 2018-08-20)
PROC: 10E0XZZ Delivery of Products of Conception, External Approach (ICD-10-PCS; principal; 2018-08-21)
PROC: 0HQ9XZZ Repair Perineum Skin, External Approach (ICD-10-PCS; 2018-08-21)
PROC: 00HU33Z Insertion of Infusion Device into Spinal Canal, Percutaneous Approach (ICD-10-PCS; 2018-08-21)
PROC: 3E0R3BZ Introduction of Anesthetic Agent into Spinal Canal, Percutaneous Approach (ICD-10-PCS; 2018-08-21)
DX: O48.0 Post-term pregnancy (principal); Z37.0 Single live birth; O70.0 First degree perineal laceration during delivery; O71.82 Other specified trauma to perineum and vulva; O76 Abnormality in fetal heart rate and rhythm complicating labor and delivery; Z3A.40 40 weeks gestation of pregnancy; Z82.49 Family history of ischemic heart disease and other diseases of the circulatory system; Z83.3 Family history of diabetes mellitus; Z80.9 Family history of malignant neoplasm, unspecified; Z88.6 Allergy status to analgesic agent
CPT/HCPCS: 85025

== ENCOUNTER → 2018-12-05 | Outpatient (CLI) | payer BC, MEDICAID ==
[2018-12-05 08:37] LABS: Basophils % (A) 1 %; Eosinophils # (A) 0.1 k/uL (0-0.7); Eosinophils % (A) 3 %; HCT 42.7 % (34.0-46.0); Lymphocytes # (A) 1.6 k/uL (1.0-4.8); Lymphocytes % (A) 38 %; MCH 30.8 pg (25.0-35.0); MCHC 32.8 g/dL (31.0-37.0); MCV 94.1 fL (80.0-100.0); Mean Platelet Volume 8.5; Monocytes # (A) 0.4 k/uL (0-1.0); Monocytes % (A) 10 %; Neutrophils # (A) 1.9 k/uL (1.3-7.7); Neutrophils % (A) 46 %; Platelet Count 214 k/uL (150-450); RBC 4.54 m/uL (3.80-5.40); RDW 14.1 % (11.5-15.5); WBC 4.2 k/uL (3.8-10.6)
[2018-12-05 17:02] LABS: Iron(FE) 64 ug/dL (50-170)
[2018-12-05 17:12] LABS: Vitamin D 25 Hydroxy 25.8 ng/mL (30.0-100.0)
[2018-12-05 17:23] LABS: Folate, Serum >24.0 ng/mL
[2018-12-05 17:35] LABS: African American GFR (CKD) 100.8 (60.0-200.0); Albumin 4.4 g/dL (3.80-4.90); Albumin/Globulin Ratio 2.44 (1.60-3.17); Anion Gap 7.9 mmol/L (4.00-12.00); BUN/Creat Ratio 16.67 Ratio (12.00-20.00); Calcium 9.4 mg/dL (8.7-10.3); Carbon Dioxide 24.1 mmol/L (21.6-31.8); Globulin 1.8 g/dL (1.6-3.3); Potassium 4.4 mmol/L (3.5-5.5); Total Bilirubin 1.2 mg/dL (0.3-1.2); Total Protein 6.2 g/dL (6.2-8.2)
[2018-12-05 17:43] LABS: T4, Free (Free Thyroxine) 1.1 ng/dL (0.80-1.80)
== END | disposition home or self-care (01) ==
LOC: LABWHC1 07:36
PROVIDERS: ATTEND Family Medicine
DX: Z00.00 Encounter for general adult medical examination without abnormal findings (principal); D64.9 Anemia, unspecified; E53.8 Deficiency of other specified B group vitamins
CPT/HCPCS: 36415; 80053; 82306; 82607; 82746; 83540; 84439; 84443; 85025

== ENCOUNTER → 2019-01-12 | Outpatient (CLI) | payer BC ==
--- NOTE | 2019-01-12 15:06 | XR ---
EXAMINATION TYPE: XR chest 2V DATE OF EXAM: 01/12/2019 COMPARISON: Prior chest x-ray 01/28/2018 HISTORY: Shortness of breath TECHNIQUE: Frontal and lateral views of the chest are obtained. FINDINGS: There is no focal air space opacity, pleural effusion, or pneumothorax seen. The cardiac silhouette size is within normal limits. The osseous structures are intact. IMPRESSION: No acute cardiopulmonary process.
== END | disposition home or self-care (01) ==
LOC: RADXRMAIN 10:52
PROVIDERS: ATTEND Family Medicine
DX: R06.00 Dyspnea, unspecified (principal)
CPT/HCPCS: 71046

== ENCOUNTER 2021-02-27 06:00 | Inpatient (IN) | payer MEDICAID, BC ==
[2021-02-27] MEDS ORDERED: LIDOCAINE 0.5% (PF) 5 MG/ML (50 ML SDV) SQ PRN (06:15)
[2021-02-27] MEDS ORDERED: OXYTOCIN 30 UNITS/500 ML NS 30 UNIT in SALINE 1 500ML.BAG IV SCH ×2 (06:15→12:45)
[2021-02-27] MEDS ORDERED: TERBUTALINE 1 MG/ML VIAL SQ PRN (06:15)
[2021-02-27] MEDS ORDERED: METHYLERGONOVINE 0.2 MG/ML 1 ML AMP IM PRN (06:15)
[2021-02-27] MEDS ORDERED: OXYTOCIN 10 UNIT/ML 1 ML VIAL IM PRN (06:15)
[2021-02-27] MEDS ORDERED: CARBOPROST TROMETHAMINE 250 MCG/ML 1 ML AMP IM PRN (06:15)
[2021-02-27 06:36] LABS: Basophils % (A) 0 %; Eosinophils # (A) 0.1 k/uL (0-0.7); Eosinophils % (A) 1 %; HCT 32.5 % (34.0-46.0); HGB 11.3 gm/dL (11.4-16.0); Lymphocytes # (A) 1.9 k/uL (1.0-4.8); Lymphocytes % (A) 20 %; MCH 31.5 pg (25.0-35.0); MCHC 34.9 g/dL (31.0-37.0); MCV 90.4 fL (80.0-100.0); Mean Platelet Volume 8.7; Monocytes # (A) 0.8 k/uL (0-1.0); Monocytes % (A) 9 %; Neutrophils # (A) 6.2 k/uL (1.3-7.7); Neutrophils % (A) 68 %; Platelet Count 209 k/uL (150-450); RDW 12.7 % (11.5-15.5); WBC 9.1 k/uL (3.8-10.6)
[2021-02-27] MEDS: LACTATED RINGERS 1,000 ML IV SCH ×2 (06:40→15:29)
[2021-02-27] MEDS ORDERED: BUTORPHANOL 1 MG/ML 1 ML VIAL IV PRN (08:39)
--- NOTE | 2021-02-27 08:42 | P.HPOB ---
History of Present Illness H&P Date: 02/27/21 Chief Complaint: IUP at 39-0/7 weeks this is a 30-year-old 3 para 1011 at 39-0/7 weeks with an estimated due date of 03/05. Patient has good dating parameters for this estimated date of confinement. Patient has been receiving routine care which has been es sentially uncomplicated. Patient does have a known history of MT HFR mutation, and migraines. Patient is without complaints this morning. She notes good movement denies vaginal bleeding or loss of fluid. On bloodwork this patient has a blood type of O+, rubella status immune, B surface antigen negative, HIV negative, RPR nonreactive, group beta strep cultures negative. Review of Systems Constitutional: Denies chills, Denies fatigue, Denies fever Ears, nose, mouth and throat: Denies headache Cardiovascular: Reports leg edema Respiratory: Denies dyspnea Gastrointestinal: Denies constipation, Denies diarrhea, Denies nausea, Denies vomiting Genitourinary: Reports Past Medical History Past Medical History: No Reported History Additional Past Medical History / Comment(s): MTHFR, migraines History of Any Multi-Drug Resistant Organisms: None Reported Past Surgical History: Adenoidectomy, Tonsillectomy Past Anesthesia/Blood Transfusion Reactions: No Reported Reaction Past Psychological History: Anxiety Smoking Status: Never smoker Past Alcohol Use History: None Reported, Occasional Past Drug Use History: None Reported - Past Family History Father Family Medical History: Cancer, Coronary Artery Disease (CAD), Diabetes Mellitus Additional Family Medical History / Comment(s): father deceases from cancer Mother Family Medical History: Hypertension Additional Family Medical History / Comment(s): glaucoma Medications and Allergies Home Medications Medication Instructions Recorded Confirmed Type Levomefolate Calcium 7.5 mg PO DAILY 01/28/18 02/27/21 History [l-Methylfolate Calcium] Fmt-Njrb-Yuylz Acid 1 cap PO DAILY 01/28/18 02/27/21 History [-U Capsule (formulary)] Aspirin 81 mg PO DAILY 02/27/21 02/27/21 History Allergies Allergy/AdvReac Type Severity Reaction Status Date / Time ibuprofen [From Advil] Allergy Rash/Hives Verified 02/27/21 06:14 Exam Osteopathic Statement: *. No significant issues noted on an osteopathic structural exam other than those noted in the History and Physical/Consult. Vital Signs Temp Pulse Resp BP Pulse Ox 02/27/21 06:13 96.8 F L 87 16 141/78 100 Intake and Output 02/26/21 02/27/21 02/27/21 22:59 06:59 14:59 Other: Weight 78.925 kg targeted physical exam is performed in this date and parts classifier a well-nourished well-developed female in no acute distress, breathing is noted to be nonlabored, heart has regular rate and rhythm, abdomen is gravid and appropriate for gestational age, on cervical exam she is 4/80/-1 station, amniotomy is performed and clear fluid is obtained. heart tones returned be category 1 and she is halina irregularly. Results Result Diagrams: 02/27/21 06:24 Abnormal Lab Results - Last 24 Hours (Table) 02/27/21 Range/Units 06:24 RBC 3.60 L (3.80-5.40) m/uL Hgb 11.3 L (11.4-16.0) gm/dL Hct 32.5 L (34.0-46.0) % Assessment and Plan (1) Term Current Visit: Yes Status: Acute Code(s): Z34.90 - ENCNTR FOR SUPRVSN OF NORMAL , UNSP, UNSP TRIMESTER SNOMED Code(s): 38972088 Plan: 30-year-old 011 at 39-0/7 weeks that presents for elective induction of labor. Patient had an expedient delivery with her first child after Cervidil induction. Pitocin induction of labor is begun per hospital protocol. Patient is counseled on options for analgesia including Stadol and epidural. Patient states understanding and will request if necessary. Anticipate spontaneous vaginal delivery later today.
[2021-02-27] MEDS ORDERED: ROPIVACAINE 5MG/ML 20ML VIAL ONE (09:24)
[2021-02-27] MEDS ORDERED: fentaNYL (PF) 50 MCG/ML 5 ML AMP ONE (09:24)
[2021-02-27] MEDS ORDERED: SODIUM CHLORIDE 0.9% 100 ML BAG ONE (09:24)
[2021-02-27] MEDS ORDERED: diphenhydrAMINE 50 MG CAP PO PRN (12:31)
[2021-02-27] MEDS ORDERED: HYDROCORTISONE 2.5% RECTAL CREAM 30 GM TUBE RECTAL PRN (12:31)
[2021-02-27] MEDS ORDERED: diphenhydrAMINE 25 MG CAP PO PRN (12:31)
[2021-02-27] MEDS ORDERED: BENZOCAINE/MENTHOL SPRAY 1 GM/SPRAY AEROSOL TOPICAL PRN (12:31)
[2021-02-27] MEDS ORDERED: ACETAMINOPHEN TAB 325 MG TAB PO PRN (12:31)
[2021-02-27] MEDS ORDERED: LANOLIN CREAM 5 GM TUBE TOPICAL PRN (12:31)
[2021-02-27] MEDS ORDERED: SIMETHICONE 80 MG CHEWABLE PO PRN (12:31)
[2021-02-27] MEDS ORDERED: ZOLPIDEM 5 MG TAB PO PRN (12:31)
[2021-02-27] MEDS ORDERED: diphenhydrAMINE 50 MG/ML 1 ML VIAL IVP PRN ×2 (12:31)
--- NOTE | 2021-02-27 12:35 | P.PROBDLV ---
Vaginal Delivery Note - . Vaginal Delivery Note: this is a 30-year-old 011 at 39 0/7 weeks that presents to labor and delivery for elective induction of labor. Patient is admitted to labor and delivery and Pitocin induction of labor is begun per hospital protocol. Once regular contractions were noted amniotomy is performed and clear fluid was obtained. Patient quickly became uncomfortable and requested epidural placement. Epidural was placed without difficulty by the anesthesia department. Patient progressed to complete began pushing and had a normal spontaneous vaginal delivery of a viable female infant at 1214, weight of 7 pounds 0.2 ounces, 3180 g. had noted Apgars of 9 and 9 at one and 5 minutes respectively. Patient had a loose nuchal cord that was delivered through. After a two-minute delayed the umbo cord was doubly clamped and cut and the infant was handed to the maternal abdomen. Inspection the patient's vaginal vault a first-degree vaginal laceration was appreciated along with bilateral labial lacerations. The vaginal laceration was repaired with a oodpuw-vo-gyjiy suture of 3-0 Rapide. The right periurethral was closed with a single stitch. The placenta was delivered spontaneously intact with three-vessel cord being noted. After delivery the placenta the uterus is noted be firm and below the umbilicus. Estimated blood loss 200 mL. Patient and tolerated delivery well and are resting comfortably. All counts were noted be correct 2 at the end of the delivery.
[2021-02-27] MEDS: IBUPROFEN 600 MG TAB PO SCH ×2 (13:16→15:11)
[2021-02-27 19:51] VITALS: RESP 16
[2021-02-27] MEDS: SENNOSIDES-DOCUSATE SODIUM 1 EACH TAB PO SCH (19:56)
[2021-02-28] MEDS: IBUPROFEN 600 MG TAB PO SCH ×3 (00:29→13:54)
[2021-02-28] MEDS: SENNOSIDES-DOCUSATE SODIUM 1 EACH TAB PO SCH (08:21)
--- NOTE | 2021-02-28 08:57 | P.DS ---
Providers Date of admission: 02/27/21 06:06 Expected date of discharge: 02/28/21 Attending physician: Indira Moya Primary care physician: Lorne Sarkar - Discharge Diagnosis(es) (1) Term Current Visit: Yes Status: Acute (2) Normal spontaneous vaginal delivery Current Visit: No Status: Acute (3) Perineal laceration with delivery, first degree Current Visit: No Status: Acute Hospital Course: this is a 30-year-old that presented to labor and delivery yesterday at 39 0/7 weeks for elective induction of labor. Patient had been receiving routine care which has been essentially uncomplicated. For full details on this patient please see the dictated history and physical. Patient was admitted and Pitocin induction of labor was begun per hospital protocol. Patient underwent amniotomy and clear fluid was obtained. Patient quickly became uncomfortable and requested epidural placement. Epidural was placed without difficulty by the anesthesia department. Patient progressed to complete began pushing and had normal spontaneous vaginal delivery of a viable female at 1214, weight of 7 pounds 0.2 ounces, Apgars of 9 and 9 at one and 5 minutes respectively. did have a loose nuchal cord which was delivered through at the time of delivery. Patient did sustain bilateral labial lacerations and a first-degree vaginal laceration. The vaginal laceration was repaired with 3-0 Rapide in the usual fashion. Patient's course has been uneventful. On this day #1 she is ambulating and voiding without difficulty. She is tolerating a regular diet without nausea or vomiting. She states her pain is well-controlled. She is breast-feeding. She would like discharge home at 24 hours. Patient Condition at Discharge: Good Plan - Discharge Summary New Discharge Prescriptions: No Action Ynq-Hiwa-Cacpz Acid [-U Capsule (formulary)] 1 cap PO DAILY Levomefolate Calcium [l-Methylfolate Calcium] 7.5 mg PO DAILY Aspirin 81 mg PO DAILY Discharge Medication List Levomefolate Calcium [l-Methylfolate Calcium] 7.5 mg PO DAILY 01/28/18 [History] Ytx-Amta-Dawiu Acid [-U Capsule (formulary)] 1 cap PO DAILY 01/28/18 [History] Aspirin 81 mg PO DAILY 02/27/21 [History] Follow up Appointment(s)/Referral(s): Indira Moya DO [Doctor of Osteopathic Medicine] - 4 Weeks Patient Instructions/Handouts: Vaginal Delivery (DC), Vaginal Delivery (GEN) Discharge Disposition: HOME SELF-CARE
[2021-02-28 09:40] VITALS: TEMP 97.7
[2021-02-28 12:08] VITALS: BP 120/70; PULSE 86
== END 2021-02-28 14:31 | disposition home or self-care (01) | DRG 806 ==
LOC: 4FBP 06:06
PROVIDERS: ADMIT Obstetrics & Gynecology Obstetrics; ATTEND Obstetrics & Gynecology Obstetrics
PROC: 10E0XZZ Delivery of Products of Conception, External Approach (ICD-10-PCS; principal; 2021-02-27)
PROC: 0HQ9XZZ Repair Perineum Skin, External Approach (ICD-10-PCS; 2021-02-27)
PROC: 10907ZC Drainage of Amniotic Fluid, Therapeutic from Products of Conception, Via Natural or Artificial Opening (ICD-10-PCS; 2021-02-27)
PROC: 3E0P7VZ Introduction of Hormone into Female Reproductive, Via Natural or Artificial Opening (ICD-10-PCS; 2021-02-27)
PROC: 3E033VJ Introduction of Other Hormone into Peripheral Vein, Percutaneous Approach (ICD-10-PCS; 2021-02-27)
PROC: 0UQMXZZ Repair Vulva, External Approach (ICD-10-PCS; 2021-02-27)
DX: O69.81X0 Labor and delivery complicated by cord around neck, without compression, not applicable or unspecified (principal); O99.354 Diseases of the nervous system complicating childbirth; Z37.0 Single live birth; O71.82 Other specified trauma to perineum and vulva; O70.0 First degree perineal laceration during delivery; F41.9 Anxiety disorder, unspecified; O99.344 Other mental disorders complicating childbirth; G43.909 Migraine, unspecified, not intractable, without status migrainosus; Z3A.39 39 weeks gestation of pregnancy; Z79.82 Long term (current) use of aspirin; Z15.89 Genetic susceptibility to other disease
CPT/HCPCS: 85025; 86850; 86900; 86901

== ENCOUNTER 2021-11-20 16:04 | Emergency (ER) | payer BC, MEDICAID ==
[2021-11-20 16:07] VITALS: TEMP 97.7
[2021-11-20] MEDS ORDERED: SODIUM CHLORIDE 0.9% 1,000 ML IV STA (16:38)
[2021-11-20] MEDS ORDERED: SODIUM CHLORIDE 0.9% 500 ML 500 ML IV STA (16:38)
--- NOTE | 2021-11-20 16:46 | ED ---
Abdominal Pain HPI - General Chief Complaint: Abdominal Pain Stated Complaint: ABD Pain Time Seen by Provider: 11/20/21 16:30 Source: patient Mode of arrival: ambulatory Limitations: no limitations - History of Present Illness Initial Comments: This 31-year-old female presents with a complaint of some abdominal pain. This is primarily in the midepigastric and right upper quadrant. Onset occurred a couple hours ago. She states that it was very severe and was radiating up into her right shoulder. She was nauseated and vomited. She denies any history of known previous gallbladder problems. She's never had a cholecystectomy. She denies any known definitive history of peptic ulcer disease or gastritis. She denies any fevers or chills. She had one episode of diarrhea yesterday but none today. She denies any constipation or urinary symptoms. She denies being as her 's had a vasectomy. No other complaints or modifying fac tors. She does relate having occasional previous episodes of nausea after eating food which was worse with fried or fatty food. 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 - Related Data Home Medications Medication Instructions Recorded Confirmed Aspirin 81 mg PO DAILY 02/27/21 11/20/21 Cyanocobalamin (Vitamin B-12) 1,000 mcg PO DAILY 11/20/21 11/20/21 [Vitamin B-12] Multivitamins, Thera [Multivitamin 1 tab PO DAILY 11/20/21 11/20/21 (formulary)] Previous Rx's Medication Instructions Recorded Omeprazole [PriLOSEC] 40 mg PO DAILY #30 cap 11/20/21 Allergies Allergy/AdvReac Type Severity Reaction Status Date / Time ibuprofen [From Advil] Allergy Rash/Hives Verified 11/20/21 17:44 Review of Systems ROS Statement: Those systems with pertinent positive or pertinent negative responses have been documented in the HPI. ROS Other: All systems not noted in ROS Statement are negative. Past Medical History Past Medical History: No Reported History Additional Past Medical History / Comment(s): migraines History of Any Multi-Drug Resistant Organisms: None Reported Past Surgical History: Adenoidectomy, Tonsillectomy Past Anesthesia/Blood Transfusion Reactions: No Reported Reaction Past Psychological History: Anxiety Smoking Status: Never smoker Past Alcohol Use History: None Reported, Occasional Past Drug Use History: None Reported - Past Family History Father Family Medical History: Cancer, Coronary Artery Disease (CAD), Diabetes Mellitus Additional Family Medical History / Comment(s): father deceases from cancer Mother Family Medical History: Hypertension Additional Family Medical History / Comment(s): glaucoma General Exam - General Exam Comments Initial Comments: GENERAL: The patient is well nourished and well hydrated. VITAL SIGNS: Heart rate, blood pressure, respiratory rate reviewed as recorded in nurse's notes. EYES: Pupils are round and reactive. Extraocular movements are intact. No conjunctival / lid redness or swelling. ENT: No external evidence of injury, swelling, or ecchymosis. Airway is patent. Throat is clear. NECK: Nontender. No swelling or evidence of injury. No subcutaneous emphysema. Trachea is midline. No thyroid mass. HEART: Regular rate and rhythm. Good peripheral pulses. LUNGS/CHEST: Breath sounds clear and equal bilaterally. No rales, rhonchi, or wheezes. No ecchymosis, subcutaneous emphysema, or tenderness. ABDOMEN: Abdomen soft with mild tenderness noted midepigastric region and right upper quadrant. Appears mildly bloated. No palpable masses or organomegaly. No peritoneal signs. No abdominal wall swelling or ecchymosis. EXTREMITIES: No extremity tenderness. Normal muscle tone and function. No thoracolumbar tenderness. NEUROLOGIC: Sensation is grossly intact. Cranial nerve exam reveals face is symmetrical, tongue is midline, speech is clear. SKIN: No abrasions or ecchymosis is noted. No induration or masses noted. PSYCHIATRIC: Alert and oriented. Appropriate behavior and judgment. Limitations: no limitations Course Vital Signs 11/20/21 11/20/21 11/20/21 16:05 16:32 19:05 Temperature 97.7 F Pulse Rate 95 76 75 Respiratory 16 20 16 Rate Blood Pressure 138/88 131/70 122/70 O2 Sat by Pulse 100 98 98 Oximetry Medical Decision Making - Medical Decision Making The patient was seen and examined. All diagnostics are reviewed. She refuses any pain or nausea medications currently she feels improved. The laboratory d oes not show any acute abnormalities. The urinalysis is negative for acute process. The patient also had a gallbladder ultrasound which is negative. Is feeling much improved on recheck. The exact cause of the symptomatology is not definitively determined. It is felt as though it potentially could be related to an acalculous cholecystitis. It possibly also could be related to gastritis or peptic ulcer disease. It is felt as though she is stable for discharge home. She is instructed to avoid any nonsteroidal anti-inflammatory medications as well as alcohol. Prilosec will be prescribed. Close follow-up with Dr. Curtis is recommended. Return parameters are discussed. Diet therapy is also discussed. - Lab Data Result diagrams: 11/20/21 17:02 11/20/21 17:02 Lab Results 11/20/21 11/20/21 11/20/21 Range/Units 17:02 17:02 17:02 WBC 7.0 (3.8-10.6) k/uL RBC 4.63 (3.80-5.40) m/uL Hgb 14.1 (11.4-16.0) gm/dL Hct 43.7 (34.0-46.0) % MCV 94.5 (80.0-100.0) fL MCH 30.5 (25.0-35.0) pg MCHC 32.3 (31.0-37.0) g/dL RDW 13.1 (11.5-15.5) % Plt Count 235 (150-450) k/uL MPV 8.6 Neutrophils % 70 % Lymphocytes % 22 % Monocytes % 6 % Eosinophils % 1 % Basophils % 1 % Neutrophils # 4.9 (1.3-7.7) k/uL Lymphocytes # 1.5 (1.0-4.8) k/uL Monocytes # 0.4 (0-1.0) k/uL Eosinophils # 0.0 (0-0.7) k/uL Basophils # 0.1 (0-0.2) k/uL PT 10.4 (9.0-12.0) sec INR 1.0 (<1.2) APTT 24.4 (22.0-30.0) sec Sodium 140 (137-145) mmol/L Potassium 3.9 (3.5-5.1) mmol/L Chloride 106 (98-107) mmol/L Carbon Dioxide 22 (22-30) mmol/L Anion Gap 12 mmol/L BUN 18 H (7-17) mg/dL Creatinine 0.66 (0.52-1.04) mg/dL Est GFR (CKD-EPI)AfAm >90 (>60 ml/min/1.73 sqM) Est GFR (CKD-EPI)NonAf >90 (>60 ml/min/1.73 sqM) Glucose 90 (74-99) mg/dL Calcium 9.7 (8.4-10.2) mg/dL Total Bilirubin 1.3 (0.2-1.3) mg/dL AST 24 (14-36) U/L ALT 14 (4-34) U/L Alkaline Phosphatase 64 (38-126) U/L Total Protein 7.1 (6.3-8.2) g/dL Albumin 4.5 (3.5-5.0) g/dL Lipase 52 (23-300) U/L Urine Color Urine Appearance (Clear) Urine pH (5.0-8.0) Ur Specific [place] (1.001-1.035) Urine Protein (Negative) Urine Glucose (UA) (Negative) Urine Ketones (Negative) Urine Blood (Negative) Urine Nitrite (Negative) Urine Bilirubin (Negative) Urine Urobilinogen (<2.0) mg/dL Ur Leukocyte Esterase (Negative) Urine HCG, Qual (Not Detectd) 11/20/21 11/20/21 Range/Units 17:02 17:02 WBC (3.8-10.6) k/uL RBC (3.80-5.40) m/uL Hgb (11.4-16.0) gm/dL Hct (34.0-46.0) % MCV (80.0-100.0) fL MCH (25.0-35.0) pg MCHC (31.0-37.0) g/dL RDW (11.5-15.5) % Plt Count (150-450) k/uL MPV Neutrophils % % Lymphocytes % % Monocytes % % Eosinophils % % Basophils % % Neutrophils # (1.3-7.7) k/uL Lymphocytes # (1.0-4.8) k/uL Monocytes # (0-1.0) k/uL Eosinophils # (0-0.7) k/uL Basophils # (0-0.2) k/uL PT (9.0-12.0) sec INR (<1.2) APTT (22.0-30.0) sec Sodium (137-145) mmol/L Potassium (3.5-5.1) mmol/L Chloride (98-107) mmol/L Carbon Dioxide (22-30) mmol/L Anion Gap mmol/L BUN (7-17) mg/dL Creatinine (0.52-1.04) mg/dL Est GFR (CKD-EPI)AfAm (>60 ml/min/1.73 sqM) Est GFR (CKD-EPI)NonAf (>60 ml/min/1.73 sqM) Glucose (74-99) mg/dL Calcium (8.4-10.2) mg/dL Total Bilirubin (0.2-1.3) mg/dL AST (14-36) U/L ALT (4-34) U/L Alkaline Phosphatase (38-126) U/L Total Protein (6.3-8.2) g/dL Albumin (3.5-5.0) g/dL Lipase (23-300) U/L Urine Color Light Yellow Urine Appearance Clear (Clear) Urine pH 5.5 (5.0-8.0) Ur Specific [place] 1.017 (1.001-1.035) Urine Protein Negative (Negative) Urine Glucose (UA) Negative (Negative) Urine Ketones Negative (Negative) Urine Blood Negative (Negative) Urine Nitrite Negative (Negative) Urine Bilirubin Negative (Negative) Urine Urobilinogen <2.0 (<2.0) mg/dL Ur Leukocyte Esterase Negative (Negative) Urine HCG, Qual Not Detected (Not Detectd) Disposition Clinical Impression: Acute abdominal pain, Nausea and vomiting Disposition: HOME SELF-CARE Condition: Good Additional Instructions: You may safely take tylenol if needed for pain. Prescriptions: Omeprazole [PriLOSEC] 40 mg PO DAILY #30 cap Is patient prescribed a controlled substance at d/c from ED?: No Referrals: Lorne Sarkar DO [Primary Care Provider] - 1-2 days Manuel Curtis MD [Medical Doctor] - 1-2 days Time of Disposition: 19:13
[2021-11-20 17:22] LABS: Appearance,Urine Clear (Clear); Basophils # (A) 0.1 k/uL (0-0.2); Basophils % (A) 1 %; Bilirubin,Urine Negative (Negative); Blood,Urine Negative (Negative); Color,Urine Light Yellow; Eosinophils % (A) 1 %; Glucose,Urine (UA) Negative (Negative); HCT 43.7 % (34.0-46.0); HGB 14.1 gm/dL (11.4-16.0); Ketones,Urine Negative (Negative); Leukocyte Esterase,Urine Negative (Negative); Lymphocytes # (A) 1.5 k/uL (1.0-4.8); Lymphocytes % (A) 22 %; MCH 30.5 pg (25.0-35.0); MCHC 32.3 g/dL (31.0-37.0); MCV 94.5 fL (80.0-100.0); Mean Platelet Volume 8.6; Monocytes # (A) 0.4 k/uL (0-1.0); Monocytes % (A) 6 %; Neutrophils # (A) 4.9 k/uL (1.3-7.7); Neutrophils % (A) 70 %; Nitrite,Urine Negative (Negative); PH, Urine 5.5 (5.0-8.0); Platelet Count 235 k/uL (150-450); Protein,Urine Negative (Negative); RBC 4.63 m/uL (3.80-5.40); RDW 13.1 % (11.5-15.5); Specific Gravity,Urine 1.017 (1.001-1.035); Urobilinogen,Urine <2.0 mg/dL (<2.0)
[2021-11-20 17:32] LABS: ALT 14 U/L (4-34); AST 24 U/L (14-36); African American GFR (CKD) >90 (>60 ml/min/1.73 sqM); Albumin 4.5 g/dL (3.5-5.0); Alkaline Phosphatase 64 U/L (38-126); Anion Gap 12 mmol/L; Blood Urea Nitrogen 18 mg/dL (7-17); Calcium 9.7 mg/dL (8.4-10.2); Carbon Dioxide 22 mmol/L (22-30); Chloride 106 mmol/L (98-107); Glucose 90 mg/dL (74-99); Lipase 52 U/L (23-300); Non-African American GFR(CKD) >90 (>60 ml/min/1.73 sqM); Potassium 3.9 mmol/L (3.5-5.1); Sodium 140 mmol/L (137-145); Total Bilirubin 1.3 mg/dL (0.2-1.3); Total Protein 7.1 g/dL (6.3-8.2)
[2021-11-20 17:41] LABS: Partial Thromboplastin Time 24.4 sec (22.0-30.0); Prothrombin Time 10.4 sec (9.0-12.0)
--- NOTE | 2021-11-20 18:42 | US ---
EXAMINATION TYPE: US gallbladder DATE OF EXAM: 11/20/2021 COMPARISON: NONE CLINICAL HISTORY: RUQ and midepigastric abdominal pain. Abdomen pain TECHNIQUE: Multiple sonographic images of the right upper quadrant are obtained. FINDINGS: EXAM MEASUREMENTS: Liver Length: 16.1 cm Gallbladder Wall: 0.3 cm CBD: 0.3 cm Right Kidney: 10.0 x 4.0 x 5.1 cm Pancreas: wnl Liver: wnl Gallbladder: appears contracted Evidence for sonographic Ragsdale's sign: no CBD: wnl Right Kidney: fullness of renal pelvis IMPRESSION: Contracted gallbladder. No gallstones. No dilated ducts. No focal liver defect.
[2021-11-20 19:06] VITALS: RESP 16
[2021-11-20 19:39] VITALS: BP 132/70; PULSE 76
== END 2021-11-20 19:41 | disposition home or self-care (01) ==
LOC: EC 16:04
DX: R10.9 Unspecified abdominal pain (principal); R11.2 Nausea with vomiting, unspecified; Z88.3 Allergy status to other anti-infective agents
CPT/HCPCS: 36415; 76705; 80053; 81003; 81025; 83690; 85025; 85610; 85730; 96360; 96361; 99284

== ENCOUNTER → 2021-12-04 | Outpatient (CLI) | payer BC ==
--- NOTE | 2021-12-04 12:44 | NM ---
Nuclear medicine hepatobiliary scan. HISTORY: Pain. DOSAGE: The patient received 8 ounces of ensure plus and 4.2 mCi of Technetium 99m Choletec. FINDINGS: There is normal hepatic extraction. The gallbladder is seen by 10 minutes. There is bilia ry to bowel clearance by 20 minutes. Ejection fraction is 96%. IMPRESSION: 1. No evidence of cholecystitis. 2. Ejection fraction of 96%
== END | disposition home or self-care (01) ==
LOC: RADNMMAIN 06:54
PROVIDERS: ATTEND Surgery
DX: R10.11 Right upper quadrant pain (principal)
CPT/HCPCS: 78227; A9537; J2805

== ENCOUNTER 2022-02-12 06:15 | Day surgery (SDC) | payer BC ==
[2022-02-09 08:25] VITALS: BMI 24.0
[~2022-02-12 06:15] MED LIST: ACETAMINOPHEN TAB 500 MG TAB PO PRN; DEXAMETHASONE SOD PHOSPHATE 4 MG/ML 1 ML VIAL IV ONE; HEPARIN SODIUM,PORCINE/PF 5,000 UNIT/0.5 ML SYRINGE SQ PRN; LIDOCAINE 1% (10MG/ML) FOR IV START INTRADERMA PRN; MIDAZOLAM 2 MG/2 ML VIAL IV PRN; ONDANSETRON 4 MG/2 ML VIAL IVP ONE
[2022-02-12 06:40] VITALS: RESP 16
[2022-02-12] MEDS: LACTATED RINGERS 1,000 ML IV SCH ×2 (07:07→09:53)
[2022-02-12] MEDS ORDERED: BUPIVACAIN-EPI 0.25%-1:200,000 30 ML VIAL SQ ONE ×2 (07:18→07:59)
[2022-02-12] MEDS ORDERED: KETOROLAC 15 MG/ML 1 ML VIAL ONE (07:32)
[2022-02-12] MEDS ORDERED: ROCURONIUM 10 MG/ML (5 ML VIAL) IV ONE (07:32)
[2022-02-12] MEDS ORDERED: GLYCOPYRROLATE 0.2 MG/ML 2 ML VIAL ONE (07:32)
[2022-02-12] MEDS ORDERED: LIDOCAINE 2% INJ 20 MG/ML (2 ML VIAL) ONE (07:32)
[2022-02-12] MEDS ORDERED: MIDAZOLAM 2 MG/2 ML VIAL ONE (07:32)
[2022-02-12] MEDS ORDERED: SCOPOLAMINE 1 MG/72 HR PATCH TRANSDERM ONE (07:32)
[2022-02-12] MEDS ORDERED: fentaNYL (PF) 50 MCG/ML 2 ML AMP ONE (07:32)
[2022-02-12] MEDS ORDERED: PROPOFOL 10 MG/ML 20 ML VIAL IV ONE (07:32)
[2022-02-12] MEDS ORDERED: NEOSTIGMINE 1 MG/ML 10 ML VIAL ONE (07:32)
[2022-02-12] MEDS ORDERED: SUCCINYLCHOLINE CHLORIDE 200 MG/10 ML VIAL IV ONE (07:32)
--- NOTE | 2022-02-12 07:32 | P.GSHP ---
History of Present Illness H&P Date: 02/12/22 Chief Complaint: Chronic cholecystitis 31-year-old female known to our service. She has had frequent intermittent attacks of right upper quadrant pain. Pain radiates to the right shoulder. Pain is often aggravated by certain foods. She had an ultrasound showing a contracted gallbladder. No stones seen. She had a HIDA scan showing a 96% ejection fraction and had similar pain with that study to her normal attacks. Past Medical History Past Medical History: No Reported History Additional Past Medical History / Comment(s): migraines, b-12 deficiency, cholecystitis History of Any Multi-Drug Resistant Organisms: None Reported Past Surgical History: Adenoidectomy, Tonsillectomy Additional Past Surgical History / Comment(s): ear tubes (infant), wisdom teeth Past Anesthesia/Blood Transfusion Reactions: No Reported Reaction, Motion Sickness Past Psychological History: Anxiety, Depression Smoking Status: Never smoker Past Alcohol Use History: Occasional Past Drug Use History: None Reported - Past Family History Father Family Medical History: Cancer, Coronary Artery Disease (CAD), Diabetes Mellitus Additional Family Medical History / Comment(s): father deceases from cancer Mother Family Medical History: Hypertension Additional Family Medical History / Comment(s): glaucoma Medications and Allergies Home Medications Medication Instructions Recorded Confirmed Type Aspirin 81 mg PO DAILY 02/27/21 02/09/22 History Multivit with Calcium,Iron,Min 1 each PO DAILY 02/09/22 02/09/22 History [Women's Multivitamin] Allergies Allergy/AdvReac Type Severity Reaction Status Date / Time ibuprofen [From Advil] Allergy Rash/Hives Verified 02/12/22 06:34 Surgical - Exam Vital Signs Temp Pulse Resp BP Pulse Ox 97.4 F L 74 16 130/80 99 02/12/22 06:39 02/12/22 06:39 02/12/22 06:39 02/12/22 06:39 02/12/22 06:39 Physical exam: General: Well-developed, well-nourished HEENT: Normocephalic, sclerae nonicteric Abdomen: Nontender, nondistended Extremities: No edema Neuro: Alert and oriented Assessment and Plan (1) Chronic cholecystitis Narrative/Plan: 31-year-old female with chronic cholecystitis. We'll proceed with laparoscopic, possible open cholecystectomy at this time. Risks of bleeding, infection, bile leak, bile duct injury, retained common bile duct stone, trocar injury, conversion to an open procedure, hernia, persistent abdominal pain, anesthesia related complications were reviewed. The patient understands and wishes to proceed. Current Visit: Yes Status: Acute Code(s): K81.1 - CHRONIC CHOLECYSTITIS SNOMED Code(s): 47068706
[2022-02-12] MEDS: HYDROmorphone 0.5 MG/0.5 ML SYRINGE IVP PRN ×2 (08:36→08:50)
[2022-02-12 08:37] VITALS: TEMP 96.9
--- NOTE | 2022-02-12 08:37 | P.OP ---
Date of Procedure: 02/12/22 Procedure(s) Performed: PREOPERATIVE DIAGNOSIS: Chronic cholecystitis POSTOPERATIVE DIAGNOSIS: Same PROCEDURE: Laparoscopic cholecystectomy SURGEON: Ever EBL: Minimal see anesthesia record ANESTHESIA: Gen. COMPLICATIONS: None OPERATIVE PROCEDURE: The patient was brought and placed on the operating room table in the supine position. The patient was placed under general anesthesia at that time. The abdomen was prepped and draped in the usual sterile fashion. A small vertical infraumbilical incision was made. The fascia was grasped with the Cyndi forceps. The fascia was retracted anteriorly. The Veress needle was advanced into the peritoneal cavity. The saline drop test was normal. Insufflation took place up to 15 mmHg. A 5 mm optical trocar was advanced and the peritoneal cavity. 2 additional 5 mm trochars were placed in the right upper quadrant under direct visualization. A 12 mm trocar was advanced into the epigastric incision site. The gallbladder was retracted superiorly and laterally. The peritoneum overlying the infundibulum was bluntly dissected. The patient's cystic duct was visualized. The junction between the cystic duct common and hepatic duct was identified. The critical view of safety was achieved after blunt dissection. The cystic duct was then divided after placement of 3 12 mm clips on the patient's side and one on the specimen side. The cystic artery was identified and clipped as well. A small vessel was seen along the gallbladder fossa and clipped as well. The gallbladder was then removed from the liver bed using electrocautery. The gallbladder was then removed from the epigastric trocar site with an Endo Catch bag. The gallbladder fossa was irrigated with saline. There was no evidence of any bleeding or biliary drainage seen. The fascia at the 12 millimeter site was closed using a Wilfrido-Gagandeep 0 Vicryl stitch. The trochars were then removed. The skin at all 4 sites was closed using a 4-0 Monocryl stitch. Skin glue was utilized on the incision sites. At the end of this procedure the sponge and needle counts were correct. DISPOSITION: Stable to the recovery room
[2022-02-12] MEDS ORDERED: ACETAMINOPHEN TAB 325 MG TAB PO SCH (08:45)
[2022-02-12] MEDS ORDERED: ONDANSETRON 4 MG/2 ML VIAL IVP ONE (09:10)
[2022-02-12 10:51] VITALS: BP 108/56; PULSE 55
[2022-02-12] MEDS ORDERED: IBUPROFEN 600 MG TAB PO SCH (11:45)
== END 2022-02-12 11:39 | disposition home or self-care (01) ==
LOC: OR 06:15
PROVIDERS: ATTEND Surgery
DX: K81.1 Chronic cholecystitis (principal); G43.909 Migraine, unspecified, not intractable, without status migrainosus; E53.8 Deficiency of other specified B group vitamins; Z90.89 Acquired absence of other organs; F41.9 Anxiety disorder, unspecified; F32.A Depression, unspecified; F10.10 Alcohol abuse, uncomplicated; Z82.49 Family history of ischemic heart disease and other diseases of the circulatory system; Z83.49 Family history of other endocrine, nutritional and metabolic diseases; Z83.511 Family history of glaucoma; Z79.899 Other long term (current) drug therapy; Z79.82 Long term (current) use of aspirin; Z88.6 Allergy status to analgesic agent
CPT/HCPCS: 47562; 81025; 88304; J2250; J0330; J1100; J2710; J0690; J2405; J3010; J1885; J2704; J1170; J1790; J1644; J2001